=== PATIENT | male | born 1960 | race Caucasian/White ===

== ENCOUNTER 2017-03-22 13:27 | Emergency (ER) | payer BC ==
[2017-03-22] MEDS ORDERED: LORazepam 1 MG Tab PO ONE (13:52)
--- NOTE | 2017-03-22 13:52 | EDM.PDOC ---
ED HPI GENERAL MEDICAL PROBLEM - General Chief Complaint: Neurological Problem Stated Complaint: SHAKEY, DIZZY Time Seen by Provider: 03/22/17 13:35 Source of Information: Reports: Patient, Family, Old Records, RN History Limitations: Reports: No Limitations - History of Present Illness INITIAL COMMENTS - FREE TEXT/NARRATIVE: 56 yo male presents with intermittent dizziness since yesterday. Was just seen in the clinic on Tuesday by his primary, but did not call him regarding these dizzy sx's. Is not currently dizzy. Had a tremor for the past year. Says his father also had a tremor. Dr. Beard patient. Had a PSA last Tuesday only for lab work and this was normal. Reported to the nurse one beer since yesterday. Reported to Dr. Beard 4 beers/week. Later in his ER course changes story to about 2 cases of beer/week... Onset: Gradual Onset Date: 03/21/17 Duration: Hour(s):, Intermittent, Waxing/Waning Location: Reports: Generalized Quality: Reports: Other (no pain) Severity: Moderate Improves with: Reports: None Worsens with: Reports: None Context: Reports: Other (unknown, denies heavy alcohol use.) Associated Symptoms: Denies: Chest Pain, Diaphoresis, Fever/Chills, Nausea/ Vomiting, Shortness of Breath Treatments SEC ACCOUNTANT: Reports: Other (see below) (none) - Related Data Allergies Allergy/AdvReac Type Severity Reaction Status Date / Time No Known Allergies Allergy Verified 03/22/17 15:31 Home Meds: Home Meds NK [No Known Home Meds] 03/22/17 [History] ED ROS GENERAL - Review of Systems Review Of Systems: See Below Constitutional: Reports: No Symptoms HEENT: Reports: No Symptoms Respiratory: Reports: No Symptoms Cardiovascular: Reports: No Symptoms GI/Abdominal: Reports: No Symptoms : Reports: No Symptoms Musculoskeletal: Reports: No Symptoms Skin: Reports: No Symptoms Neurological: Reports: Dizziness (intermittently), Tremors (onset about a year ago.) Psychiatric: Reports: No Symptoms ED EXAM, NEURO - Physical Exam Exam: See Below Exam Limited By: No Limitations General Appearance: Alert, Anxious, Thin Eye Exam: Bilateral Eye: Normal Inspection, PERRL Ears: Normal External Exam, Normal Canal, Hearing Grossly Normal, Normal TMs Nose: Normal Inspection, Normal Mucosa, No Blood Throat/Mouth: Normal Inspection, Normal Lips, Normal Oropharynx, Normal Voice, No Airway Compromise Head Exam: Atraumatic, Normocephalic Neck: Normal Inspection, Supple Respiratory/Chest: No Respiratory Distress, Lungs Clear, Normal Breath Sounds, No Accessory Muscle Use Cardiovascular: Regular Rate, Rhythm GI/Abdominal: Normal Bowel Sounds, Soft, Non-Tender, No Distention Neurological: Alert, Normal Mood/Affect, CN II-XII Intact, No Motor/Sensory Deficits, Oriented x 3, Other (course resting, total body tremor) Back Exam: Normal Inspection. No: CVA Tenderness (R), CVA Tenderness (L) Extremities: Normal Inspection, Normal Range of Motion, Non-Tender, No Pedal Edema Psychiatric: Normal Affect, Normal Mood Skin Exam: Warm, Dry, Intact, Normal Color, No Rash Course - Vital Signs Text/Narrative:: Much less tremors after Ativan 1 mg po Detox referral offered and declined. Last Recorded V/S: Last Vital Signs Temp 36.6 C 03/22/17 13:30 Pulse 94 03/22/17 13:30 Resp 18 03/22/17 15:30 BP 163/86 H 03/22/17 15:30 Pulse Ox 100 03/22/17 15:30 Orthostatic Blood Pressure [ 159/90 Standing] Orthostatic Blood Pressure [ 170/91 Sitting] Orthostatic Blood Pressure [ 177/91 Supine] - Orders/Labs/Meds Orders: Active Orders 24 hr Category Date Time Status Cardiac Monitoring [RC] .As Directed Care 03/22/17 13:51 Active Orthostatic Vital Signs [RC] ASDIRECTED Care 03/22/17 13:45 Active NS + KCl 20mEq/L [Normal Saline with 20 mEq KCl] 1,000 Med 03/22/17 14:30 Active ml IV ASDIRECTED Medication Orders Potassium Chloride/Sodium Chloride (Normal Saline With 20 Meq Kcl) 1,000 mls @ 500 mls/hr IV ASDIRECTED CAROLYN Last Admin: 03/22/17 14:45 Dose: 500 mls/hr Labs: Laboratory Tests 03/22/17 03/22/17 03/22/17 Range/Units 14:00 14:00 14:02 WBC 4.8 (4.5-12.0) X10-3/uL RBC 4.32 (4.30-5.75) x10(6)uL Hgb 13.8 (11.5-15.5) g/dL Hct 39.9 (30.0-51.3) % MCV 92.4 (80-96) fL MCH 32.0 (27.7-33.6) pg MCHC 34.6 (32.2-35.4) g/dL RDW 13.0 (11.5-15.5) % Plt Count 79 L (125-369) X10(3)uL Sodium (135-145) mmol/L Potassium (3.5-5.3) mmol/L Chloride (100-110) mmol/L Carbon Dioxide (23-29) mmol/L BUN (5-20) mg/dL Creatinine (0.6-1.3) mg/dL Est Cr Clr Drug Dosing Estimated GFR (MDRD) (>60) BUN/Creatinine Ratio (9-20) Glucose (80-116) mg/dL Calcium (8.6-10.2) mg/dL Magnesium (1.8-2.5) mg/dL Total Bilirubin (0.1-1.3) mg/dL AST (5-27) IU/L ALT (14-26) IU/L Alkaline Phosphatase (56-112) IU/L Total Protein (6.0-8.0) g/dL Albumin (3.5-5.2) g/dL Globulin g/dL Albumin/Globulin Ratio Urine Color Yellow (YELLOW) Urine Appearance Clear (CLEAR) Urine pH 8.0 H (5.0-6.5) Ur Specific Empire 1.010 (1.010-1.025) Urine Protein Negative (NEGATIVE) mg/dL Urine Glucose (UA) Normal (NEGATIVE) mg/dL Urine Ketones Negative (NEGATIVE) mg/dL Urine Occult Blood Negative (NEGATIVE) Urine Nitrite Negative (NEGATIVE) Urine Bilirubin Negative (NEGATIVE) Urine Urobilinogen 1 H (NEGATIVE) mg/dL Ur Leukocyte Esterase Negative (NEGATIVE) Urine RBC 0-5 (0) Urine WBC 0-5 (0) Ur Squamous Epith Cells Rare (NS,R,O) Urine Bacteria Rare H (NS) Urine Mucus Rare H (NS) Urine Opiates Screen Negative (NEGATIVE) Ur Oxycodone Screen Negative (NEGATIVE) Ur Propoxyphene Screen Negative (NEGATIVE) Ur Barbituates Screen Negative (NEGATIVE) Ur Tricyclics Screen Negative (NEGATIVE) Ur Phencyclidine Scrn Negative (NEGATIVE) Ur Amphetamine Screen Negative (NEGATIVE) Urine MDMA Screen Negative (NEGATIVE) U Benzodiazepines Scrn Negative (NEGATIVE) U Cocaine Metab Screen Negative (NEGATIVE) U Marijuana (THC) Screen Negative (NEGATIVE) Ethyl Alcohol (<0.01) % 03/22/17 03/22/17 03/22/17 Range/Units 14:02 14:02 14:02 WBC (4.5-12.0) X10-3/uL RBC (4.30-5.75) x10(6)uL Hgb (11.5-15.5) g/dL Hct (30.0-51.3) % MCV (80-96) fL MCH (27.7-33.6) pg MCHC (32.2-35.4) g/dL RDW (11.5-15.5) % Plt Count (125-369) X10(3)uL Sodium 129 L (135-145) mmol/L Potassium 3.7 (3.5-5.3) mmol/L Chloride 91 L (100-110) mmol/L Carbon Dioxide 26 (23-29) mmol/L BUN 6 (5-20) mg/dL Creatinine 0.8 (0.6-1.3) mg/dL Est Cr Clr Drug Dosing TNP Estimated GFR (MDRD) > 60 (>60) BUN/Creatinine Ratio 7.5 L (9-20) Glucose 96 (80-116) mg/dL Calcium 9.2 (8.6-10.2) mg/dL Magnesium 1.8 (1.8-2.5) mg/dL Total Bilirubin 1.6 H (0.1-1.3) mg/dL AST 225 H (5-27) IU/L ALT 193 H (14-26) IU/L Alkaline Phosphatase 68 (56-112) IU/L Total Protein 8.1 H (6.0-8.0) g/dL Albumin 5.1 (3.5-5.2) g/dL Globulin 3.0 g/dL Albumin/Globulin Ratio 1.7 Urine Color (YELLOW) Urine Appearance (CLEAR) Urine pH (5.0-6.5) Ur Specific Empire (1.010-1.025) Urine Protein (NEGATIVE) mg/dL Urine Glucose (UA) (NEGATIVE) mg/dL Urine Ketones (NEGATIVE) mg/dL Urine Occult Blood (NEGATIVE) Urine Nitrite (NEGATIVE) Urine Bilirubin (NEGATIVE) Urine Urobilinogen (NEGATIVE) mg/dL Ur Leukocyte Esterase (NEGATIVE) Urine RBC (0) Urine WBC (0) Ur Squamous Epith Cells (NS,R,O) Urine Bacteria (NS) Urine Mucus (NS) Urine Opiates Screen (NEGATIVE) Ur Oxycodone Screen (NEGATIVE) Ur Propoxyphene Screen (NEGATIVE) Ur Barbituates Screen (NEGATIVE) Ur Tricyclics Screen (NEGATIVE) Ur Phencyclidine Scrn (NEGATIVE) Ur Amphetamine Screen (NEGATIVE) Urine MDMA Screen (NEGATIVE) U Benzodiazepines Scrn (NEGATIVE) U Cocaine Metab Screen (NEGATIVE) U Marijuana (THC) Screen (NEGATIVE) Ethyl Alcohol 0.06 H (<0.01) % Meds: Medications Generic Name Dose Route Start Last Admin Trade Name Freq PRN Reason Stop Dose Admin Potassium Chloride/Sodium Chloride 1,000 mls @ 500 mls/hr 03/22/17 14:30 14:45 Normal Saline With 20 Meq Kcl IV 500 mls/hr ASDIRECTED CAROLYN Administration Discontinued Medications Generic Name Dose Route Start Last Admin Trade Name Freq PRN Reason Stop Dose Admin Lorazepam 1 mg 03/22/17 13:52 03/22/17 14:10 Ativan PO 03/22/17 13:53 1 mg ONETIME ONE Administration Departure - Departure Time of Disposition: 16:45 Disposition: Home, Self-Care 01 Condition: Fair Clinical Impression: Alcohol abuse, Hyponatremia Alcoholic hepatitis Qualifiers: Ascites presence: without ascites Qualified Code(s): K70.10 - Alcoholic hepatitis without ascites - Discharge Information Referrals: Vance Beard MD [Primary Care Provider] - Forms: ED Department Discharge - My Orders Last 24 Hours: My Active Orders 03/22/17 13:45 Orthostatic Vital Signs [RC] ASDIRECTED 03/22/17 13:51 Cardiac Monitoring [RC] .As Directed 03/22/17 14:30 NS + KCl 20mEq/L [Normal Saline with 20 mEq KCl] 1,000 ml IV ASDIRECTED - Assessment/Plan Last 24 Hours: My Active Orders 03/22/17 13:45 Orthostatic Vital Signs [RC] ASDIRECTED 03/22/17 13:51 Cardiac Monitoring [RC] .As Directed 03/22/17 14:30 NS + KCl 20mEq/L [Normal Saline with 20 mEq KCl] 1,000 ml IV ASDIRECTED
[2017-03-22] MEDS ORDERED: NS + KCl 20mEq/L 1,000 ML IV SCH (14:30)
[2017-03-22 17:08] VITALS: BP 160/91
== END 2017-03-22 17:05 | disposition home or self-care (01) ==
LOC: FB.ED 13:27
DX: K70.10 Alcoholic hepatitis without ascites (principal); F10.10 Alcohol abuse, uncomplicated; E87.1 Hypo-osmolality and hyponatremia; Y90.0 Blood alcohol level of less than 20 mg/100 ml
CPT/HCPCS: 36415; 80053; 80305; 81001; 82962; 83735; 85027; 96360; 96361; 99284; A9270; G0480; J3480

== ENCOUNTER 2017-03-24 08:44 | Emergency (ER) | payer BC ==
[2017-03-24] MEDS ORDERED: chlordiazePOXIDE 25 MG Cap PO ONE (10:34)
[2017-03-24] MEDS ORDERED: Magnesium Hydroxide 400 MG/5 ML Susp 30 ML Cup PO PRN (10:38)
--- NOTE | 2017-03-24 10:42 | CT ---
INDICATION: Dizzy, falling, vision changes Tuesday. CT HEAD WITHOUT CONTRAST: Serial contiguous 2.5 and 5-mm sections were obtained through the brain without contrast 03/24/2017. No comparisons were available. Total Exam DLP = 949.36 mGy-cm. There appears to be complete opacification of a left sphenoidal air cell with the paranasal sinuses otherwise well aerated. Mastoid air cells are well aerated. No definite cranial abnormality is identified. There is a minimal amount of calcification in the internal carotid arteries. No shift of midline structures was identified. The lateral ventricles are minimally prominent, suggesting minimal central atrophy. However, the frontal and temporal lobes show sulci that are prominent, compatible with asymmetrical cortical atrophy in that the parietal lobes are relatively normal. The only focal abnormal area of density was a focal area of increased density, Hounsfield units approximately 69 in the left frontal white matter. This area likely represents calcification rather than bleeding site, since there is no surrounding edema in that area. No other abnormal areas of density were identified - no definite bleeding site or hematoma was identified. IMPRESSION: 1. 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 2. Calcifications minimal in internal carotid arteries. 3. No definite acute intracranial abnormality. 4. Opacified left sphenoidal air cell of questionable significance - may represent a retention cyst or sinusitis - correlate clinically. Report was called to Dr. Ospina at 0937 hours, 03/24/2017. [facility] HOSPITALGautam
[2017-03-24] MEDS ORDERED: Dextrose 5%-Lactated Ringers 1,000 ML IV SCH (10:45)
[2017-03-24] MEDS ORDERED: MVI, Adult with Vitamin K 10 ML, Thiamine 100 MG, Folic Acid 1 MG, Magnesium Sulfate 3 ... IV SCH ×5 (10:45)
[2017-03-24 15:23] VITALS: BP 133/82
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
== END 2017-03-24 13:25 | disposition home or self-care (01) ==
LOC: FB.ED 08:44
DX: K70.10 Alcoholic hepatitis without ascites (principal); D69.59 Other secondary thrombocytopenia; E87.1 Hypo-osmolality and hyponatremia; H53.9 Unspecified visual disturbance; E87.8 Other disorders of electrolyte and fluid balance, not elsewhere classified; F10.20 Alcohol dependence, uncomplicated
CPT/HCPCS: 36415; 70450; 80053; 81001; 85025; 96365; 96366; 99285; A9270; J3411; J3475; J7040; J3490

== ENCOUNTER 2023-01-14 22:42 | Emergency (ER) | payer BC ==
[2023-01-14] MEDS ORDERED: Sodium Chloride 0.9% 10 ML Syringe FLUSH PRN (22:47)
[2023-01-14 23:29] LABS: BASOPHILS PERCENT AUTO 0.5 % (0.3-3.8); EOSINOPHILS PERCENT AUTO 0.4 % (0.1-6.8); HEMATOCRIT 32.5 % (38.3-50.1); HEMOGLOBIN 11.6 g/dL (12.9-17.7); LYMPHOCYTES PERCENT AUTO 18.9 % (15.8-45.3); MEAN CORPUSCULAR HEMOGLOBIN 37.9 pg (27.0-33.3); MEAN CORPUSCULAR HGB CONC 35.7 g/dL (28.7-35.3); MEAN CORPUSCULAR VOLUME 106.2 fL (80.8-98.7); MONOCYTES ABSOLUTE AUTO 0.8 x10-3/uL (0.0-1.2); MONOCYTES PERCENT AUTO 15.3 % (5.5-15.2); NEUTROPHILS ABSOLUTE AUTO 3.4 x10-3/uL (1.7-6.9); NEUTROPHILS PERCENT AUTO 64.9 % (40.3-71.8); PLATELET COUNT,PLT 210 x10(3)uL (117-477); RED BLOOD CELL COUNT 3.06 x10(6)uL (3.90-5.90); RED CELL DISTRIBUTION WIDTH 18.4 % (12.4-15.0); WHITE BLOOD CELL COUNT,WBC 5.2 x10-3/uL (3.2-10.1)
[2023-01-14 23:34] LABS: BLOOD UREA NITROGEN,BUN 7 mg/dL (7-18); BUN/CREATININE RATIO 11.7 (9-20); CALCIUM 8.3 mg/dL (8.6-10.2); CARBON DIOXIDE,CO2 25 mmol/L (21-32); CHLORIDE,CL 94 mmol/L (100-110); CREATININE 0.6 mg/dL (0.70-1.30); EST CRCL DRUG DOSING (CG) 115.08 mL/min; ESTIMATED GFR 111 mL/min (>60); GLUCOSE RANDOM 124 mg/dL (80-116); POTASSIUM,K 3.3 mmol/L (3.5-5.3); SODIUM,NA 128 mmol/L (135-145)
[2023-01-14 23:40] LABS: A/G RATIO 0.8; ALANINE AMINOTRANSFERASE,ALT 43 U/L (12-36); ALBUMIN 2.4 g/dL (3.2-4.6); ALKALINE PHOSPHATASE 124 IU/L (56-112); ASPARTATE AMNIOTRANSFERASE,AST 53 IU/L (5-25); BILIRUBIN TOTAL 0.9 mg/dL (0.1-1.3); PROTEIN TOTAL,TP 5.3 g/dL (6.0-8.0)
[2023-01-14 23:41] LABS: INR 1.09 (1.00-1.24); PROTHROMBIN TIME 11.2 sec (9.0-11.1); PTT,PARTIAL THROMBOPLSTIN TIME 24.9 SECONDS (24.4-33.2)
[2023-01-14] MEDS ORDERED: Morphine 4 MG/ML VIAL IVPUSH ONE (23:51)
[2023-01-15] MEDS ORDERED: Sodium Chloride 0.9% 10 ML Syringe FLUSH PRN (12:08)
[2023-01-15] MEDS ORDERED: Potassium Chloride 20 MEQ Tab.ER PO ONE (12:08)
[2023-01-15] MEDS ORDERED: Propranolol 60 MG Cap.ER PO ONE (12:09)
[2023-01-15] MEDS ORDERED: Dextrose 5%-0.9% NaCl 1,000 ML IV SCH (12:15)
[2023-01-15 13:19] VITALS: BP 137/100; PULSE 118
== END 2023-01-15 12:55 ==
LOC: FB.ED 22:42
DX: I63.9 Cerebral infarction, unspecified (principal); E87.1 Hypo-osmolality and hyponatremia; E87.6 Hypokalemia; G62.9 Polyneuropathy, unspecified; Z79.899 Other long term (current) drug therapy
CPT/HCPCS: 36415; 70450; 71045; 80053; 84484; 85025; 85610; 85730; 93005; 99285; A9270; 93010; 99284

== ENCOUNTER 2023-06-05 00:35 | Emergency (ER) | payer BC, MEDICARE ==
[2023-06-05] MEDS ORDERED: Sodium Chloride 0.9% 1,000 ML IV ONE ×2 (00:55→01:37)
[2023-06-05] MEDS ORDERED: Pantoprazole 40 MG Vial IVPUSH ONE (00:57)
[2023-06-05 01:18] LABS: HEMOGLOBIN 7.4 g/dL (12.9-17.7); MEAN CORPUSCULAR HEMOGLOBIN 33.9 pg (27.0-33.3); MEAN CORPUSCULAR HGB CONC 34.5 g/dL (28.7-35.3); MEAN CORPUSCULAR VOLUME 98.4 fL (80.8-98.7); MEAN PLATELET VOLUME 7.3 fL (6.7-11.0); PLATELET COUNT,PLT 174 x10(3)uL (117-477); RED BLOOD CELL COUNT 2.19 x10(6)uL (3.90-5.90); RED CELL DISTRIBUTION WIDTH 14.4 % (12.4-15.0); WHITE BLOOD CELL COUNT,WBC 16.6 x10-3/uL (3.2-10.1)
[2023-06-05 01:20] LABS: BLOOD UREA NITROGEN,BUN 43 mg/dL (7-18); BUN/CREATININE RATIO 35.8 (9-20); CALCIUM 8.7 mg/dL (8.6-10.2); CARBON DIOXIDE,CO2 23 mmol/L (21-32); CHLORIDE,CL 100 mmol/L (100-110); CREATININE 1.2 mg/dL (0.70-1.30); ESTIMATED GFR 69 mL/min (>60); GLUCOSE RANDOM 182 mg/dL (80-116); POTASSIUM,K 4.6 mmol/L (3.5-5.3); SODIUM,NA 137 mmol/L (135-145)
[2023-06-05 01:24] LABS: HEMATOCRIT 21.5 % (38.3-50.1)
[2023-06-05 01:27] LABS: A/G RATIO 1.1; ALANINE AMINOTRANSFERASE,ALT 43 U/L (12-36); ALBUMIN 2.3 g/dL (3.2-4.6); ALKALINE PHOSPHATASE 89 IU/L (56-112); ASPARTATE AMNIOTRANSFERASE,AST 22 IU/L (5-25); BILIRUBIN TOTAL 0.5 mg/dL (0.1-1.3); MAGNESIUM 1.5 mg/dL (1.8-2.5); PROTEIN TOTAL,TP 4.4 g/dL (6.0-8.0)
[2023-06-05 01:28] LABS: C-REACTIVE PROTEIN 0.22 mg/dL (<0.33); LIPASE 25 U/L (16-77); TROPONIN I 11.6 pg/mL (4.0-60.3)
[2023-06-05 01:35] LABS: ETHANOL BLOOD MEDICAL < 0.03 % (<0.03)
[2023-06-05] MEDS ORDERED: Sodium Chloride 0.9% 10 ML Syringe FLUSH PRN (01:36)
[2023-06-05] MEDS ORDERED: Lidocaine 2% HCl 6 ML Jel ONE (01:37)
[2023-06-05 01:48] LABS: INFLUENZA A NAA NEGATIVE (NEGATIVE); INFLUENZA B NAA NEGATIVE (NEGATIVE); RESPIRATORY SYNCYTIAL VIR NAA NEGATIVE (NEGATIVE)
[2023-06-05 02:03] LABS: CORONAVIRUS COVID-19 NAA NEGATIVE (NEGATIVE)
[2023-06-05 02:08] LABS: BAND PERCENT MAN 4 % (0-6); LYMPHOCYTES PERCENT MAN 7 % (13-37); METAMYELOCYTE PERCENT MAN 1 % (0-0); MONOCYTES PERCENT MAN 12 % (4-12); SEG NEUTROPHILS PERCENT MAN 76 % (46-82)
[2023-06-05 02:26] LABS: APPEARANCE,URINE CLEAR (CLEAR); BACTERIA,URINE OCCASIONAL (NS); BILIRUBIN,URINE NEGATIVE (NEGATIVE); COLOR,URINE YELLOW (YELLOW); GLUCOSE,URINE NORMAL (NORMAL); KETONES,URINE 15 mg/dL (NEGATIVE); LEUKOCYTE ESTERASE,URINE NEGATIVE (NEGATIVE); NITRITE,URINE NEGATIVE (NEGATIVE); OCCULT BLOOD,URINE NEGATIVE (NEGATIVE); PROTEIN,URINE NEGATIVE (NEGATIVE); RBC,URINE 0-5 (0-5); SQUAMOUS EPITHELIAL CELLS,UR OCCASIONAL (NS,R,O); UROBILINOGEN,URINE NORMAL (NEGATIVE); WBC,URINE 0-5 (0-5)
[2023-06-05] MEDS ORDERED: Sodium Chloride 0.9% 1,000 ML IV SCH (02:45)
[2023-06-05] MEDS ORDERED: Sodium Chloride 0.9% 250 ML IV SCH (02:45)
[2023-06-05] MEDS ORDERED: Octreotide 100 MCG/ML SDV IVPUSH ONE ×2 (03:23→04:00)
[2023-06-05] MEDS ORDERED: Octreotide 250 MCG in Sodium Chloride 0.9% 250 ML IV SCH (03:30)
[2023-06-05] MEDS ORDERED: Octreotide 100 MCG/ML SDV ONE (03:41)
[2023-06-05] MEDS ORDERED: OCTREOTIDE IV SCH ×2 (04:15→04:30)
[2023-06-05] MEDS ORDERED: SODIUM CHLORIDE 0.9% IV SCH ×2 (04:15→04:30)
[2023-06-05 23:44] VITALS: BP 134/92; PULSE 73
== END 2023-06-05 05:30 ==
LOC: FB.ED 00:35
DX: K92.2 Gastrointestinal hemorrhage, unspecified (principal); D62 Acute posthemorrhagic anemia; I95.9 Hypotension, unspecified; Z20.822 Contact with and (suspected) exposure to COVID-19; Z87.891 Personal history of nicotine dependence
CPT/HCPCS: 0241U; 36415; 36430; 51702; 80053; 80307; 81001; 82272; 83605; 83690; 83735; 84484; 85025; 86140; 86850; 86900; 86901; 86920; 86922; 87040; 93005; 93010; 96361; 96374; 96375; 99285; 99285-25; A9270-GY; C9113; J2354-JA; J7030; J7050; P9016

== ENCOUNTER 2024-07-29 16:33 | Emergency (ER) | payer BC, MEDICARE ==
[2024-07-29 17:36] LABS: BASOPHILS ABSOLUTE AUTO 0.1 x10-3/uL (0.0-0.3); BASOPHILS PERCENT AUTO 0.9 % (0.3-3.8); EOSINOPHILS PERCENT AUTO 0.7 % (0.1-6.8); HEMATOCRIT 31.9 % (38.3-50.1); HEMOGLOBIN 10.8 g/dL (12.9-17.7); LYMPHOCYTES ABSOLUTE AUTO 1.3 x10-3/uL (0.5-4.5); LYMPHOCYTES PERCENT AUTO 19.9 % (15.8-45.3); MEAN CORPUSCULAR HEMOGLOBIN 34.4 pg (27.0-33.3); MEAN CORPUSCULAR HGB CONC 33.8 g/dL (28.7-35.3); MEAN CORPUSCULAR VOLUME 101.7 fL (80.8-98.7); MEAN PLATELET VOLUME 7.1 fL (6.7-11.0); MONOCYTES ABSOLUTE AUTO 0.8 x10-3/uL (0.0-1.2); MONOCYTES PERCENT AUTO 12.5 % (5.5-15.2); NEUTROPHILS ABSOLUTE AUTO 4.4 x10-3/uL (1.7-6.9); PLATELET COUNT,PLT 194 x10(3)uL (117-477); RED CELL DISTRIBUTION WIDTH 19.1 % (12.4-15.0); WHITE BLOOD CELL COUNT,WBC 6.6 x10-3/uL (3.2-10.1)
[2024-07-29 17:39] LABS: CALCIUM 7.9 mg/dL (8.6-10.2); CARBON DIOXIDE,CO2 28 mmol/L (21-32); CHLORIDE,CL 102 mmol/L (100-110); CREATININE 0.9 mg/dL (0.70-1.30); ESTIMATED GFR 97 mL/min (>60); GLUCOSE RANDOM 96 mg/dL (80-116); POTASSIUM,K 3.6 mmol/L (3.5-5.3); SODIUM,NA 137 mmol/L (135-145)
[2024-07-29 17:45] LABS: A/G RATIO 0.7; ALANINE AMINOTRANSFERASE,ALT 53 U/L (12-36); ALBUMIN 1.8 g/dL (3.2-4.6); ALKALINE PHOSPHATASE 217 IU/L (56-112); ASPARTATE AMNIOTRANSFERASE,AST 80 IU/L (5-25); INR 1.07 (1.00-1.24); PROTEIN TOTAL,TP 4.4 g/dL (6.0-8.0)
[2024-07-29 17:49] LABS: PTT,PARTIAL THROMBOPLSTIN TIME 25.8 SECONDS (24.4-33.2)
[2024-07-29 17:51] LABS: BLOOD UREA NITROGEN,BUN < 5 mg/dL (7-18); BUN/CREATININE RATIO 5.6 (9-20); RED BLOOD CELL COUNT 3.14 x10(6)uL (3.90-5.90)
[2024-07-29 17:54] LABS: TROPONIN I 4.7 pg/mL (4.0-60.3)
[2024-07-29] MEDS: Iopamidol 755 Mg/ML 100 ML Bottle IV SCH (18:18)
[2024-07-29 19:32] VITALS: BP 148/82
[2024-07-29 19:40] VITALS: PULSE 100
== END 2024-07-29 19:43 | disposition home or self-care (01) ==
LOC: FB.ED 16:33
DX: R18.8 Other ascites (principal); R01.1 Cardiac murmur, unspecified; F10.10 Alcohol abuse, uncomplicated; Z79.899 Other long term (current) drug therapy
CPT/HCPCS: 36415; 74177; 80053; 83690; 83880; 84484; 85025; 85610; 85730; 93005; 99284; Q9967